=== PATIENT | male | born 1955 | race African-American/Black ===

== ENCOUNTER 2022-11-22 10:08 | Inpatient (IN) | payer SELFPAY ==
[~2022-11-22] VITALS: Ht 188 cm; Wt 82.0 kg
[2022-11-22] MEDS ORDERED: DILTIAZEM HCL 5MG/ML 5ML VIAL IV ONE ×2 (10:45→14:30)
[2022-11-22 11:34] LABS: BASOPHILS % 1.3 % (0.0-2.0); EOSINOPHILS % 4.4 % (0.0-5.0); HEMATOCRIT. 37.5 % (42.0-52.0); HEMOGLOBIN. 12.6 g/dL (14.0-18.0); LYMPHOCYTES % 15.2 % (20.0-50.0); MEAN CORPUSCULAR VOLUME 91.9 fL (80.0-94.0); MEAN PLATELET VOLUME 10.7 fl (7.4-10.4); NEUTROPHILS % 71.1 % (40.0-76.0); PLATELET 179 x1000/uL (130-400); RED BLOOD CELL COUNT 4.08 mill/uL (4.7-6.1); RED CELL DISTRIBUTION WIDTH 15.4 % (11.6-14.6)
[2022-11-22 12:33] LABS: CHLORIDE 108 mEq/L (98-107)
[2022-11-22] MEDS ORDERED: AMIODARONE HCL 900 MG in DEXT 5% WATER 482 ML IV STA (14:47)
[2022-11-22] MEDS ORDERED: ENOXAPARIN 100MG/ML SYR SUBCUT ONE (15:00)
[2022-11-22] MEDS ORDERED: AMIODARONE HCL 900 MG in DEXT 5% WATER 482 ML IV NR (15:30)
[2022-11-22] MEDS ORDERED: HYDROCODONE/ACETAMINOPHEN 5/325MG TABLET PO PRN (16:15)
[2022-11-22] MEDS ORDERED: GUAIFENESIN 200MG/10ML SUGAR FREE UDC PO PRN (16:15)
[2022-11-22] MEDS ORDERED: DOCUSATE SODIUM 100MG CAPSULE PO PRN (16:15)
[2022-11-22] MEDS ORDERED: NA PHOS,M-B/NA PHOS,DI-BA ENEMA 118ML PR PRN (16:15)
[2022-11-22] MEDS ORDERED: IPRATROPIUM/ALBUTEROL 0.5-3(2.5)MG/3ML NEB HHN PRN (16:15)
[2022-11-22] MEDS ORDERED: ONDANSETRON HCL 4MG/2ML INJ IV PRN (16:15)
[2022-11-22] MEDS ORDERED: ACETAMINOPHEN 325MG TABLET PO PRN ×2 (16:15)
[2022-11-22] MEDS ORDERED: ASPIRIN 325MG EC TABLET PO ONE (16:15)
[2022-11-22] MEDS ORDERED: POTASSIUM CHLORIDE 20MEQ TABLET SR PO NR (17:00)
[2022-11-22] MEDS: FUROSEMIDE 20MG TABLET PO SCH (18:26)
[2022-11-22] MEDS: SPIRONOLACTONE 25MG TABLET PO SCH (18:26)
[2022-11-22] MEDS: MAGNESIUM/ALUMINUM HYDROXIDE/SIMETHICONE 30ML UDC PO PRN ×2 (20:02→21:06)
[2022-11-22] MEDS ORDERED: ATORVASTATIN CALCIUM 40MG TABLET PO SCH (21:00)
[2022-11-22] MEDS: GUAIFENESIN 600MG ER TABLET PO SCH (21:06)
[2022-11-22] MEDS: CLONIDINE 0.1MG TABLET PO PRN (23:42)
[2022-11-23 00:11] LABS: *AMPHETAMINES SCREEN URINE NEGATIVE (NEGATIVE); *BARBITURATES SCREEN URINE NEGATIVE (NEGATIVE); *BENZODIAZEPINES SCREEN URINE NEGATIVE (NEGATIVE); *COCAINE SCREEN URINE NEGATIVE (NEGATIVE); CANNABINOID URINE SCREEN PRESUMTIVE POSITIVE (NEGATIVE); METHADONE URINE SCREEN NEGATIVE (NEGATIVE); OPIATES URINE SCREEN NEGATIVE (NEGATIVE); PHENCYCLIDINE URINE SCREEN NEGATIVE (NEGATIVE)
[2022-11-23] MEDS ORDERED: MELATONIN 3MG TABLET PO PRN (01:45)
[2022-11-23] MEDS ORDERED: ENOXAPARIN 80MG/0.8ML SYR SUBCUT SCH (06:00)
[2022-11-23] MEDS: CLONIDINE 0.1MG TABLET PO PRN (06:45)
[2022-11-23] MEDS: PANTOPRAZOLE 40MG DR TABLET PO SCH ×2 (06:45→07:43)
[2022-11-23 09:45] LABS: CHLORIDE 105 mEq/L (98-107)
[2022-11-23 09:48] LABS: HEMATOCRIT 36.1 % (42.0-52.0); MEAN CORPUSCULAR HEMOGLOBIN 30.3 pg (28.0-32.0); MEAN CORPUSCULAR VOLUME 91.5 fL (80.0-94.0); PLATELET 170 x1000/uL (130-400); RED BLOOD CELL COUNT 3.94 mill/uL (4.7-6.1); RED CELL DISTRIBUTION WIDTH 15.5 % (11.6-14.6)
[2022-11-23 09:50] LABS: INR 1.1; PROTHROMBIN TIME 11.9 sec (9.6-11.0)
[2022-11-23] MEDS: FUROSEMIDE 20MG TABLET PO SCH (10:00)
[2022-11-23] MEDS: SPIRONOLACTONE 25MG TABLET PO SCH (10:00)
[2022-11-23] MEDS: GUAIFENESIN 600MG ER TABLET PO SCH (10:00)
[2022-11-23 10:03] LABS: HDL CHOLESTEROL 31 mg/dL (40-59); LDL CHOLESTEROL 90 mg/dL (5-100); PHOSPHORUS 2.6 mg/dL (2.5-4.9); T4 FREE 0.82 ng/dL (0.76-1.46); TOTAL IRON BINDING CAPACITY 267 ug/dL (250-450)
[2022-11-23 11:31] LABS: FOLIC ACID (FOLATE) SERUM 15.2 ng/mL (>5.38)
[2022-11-23 12:00] VITALS: BP 134/88
== END 2022-11-23 15:52 | disposition left against medical advice (07) | DRG 201 ==
LOC: ER 10:13 → MICUSO 14:41 → EDBEDREQ 20:27
PROVIDERS: ADMIT Internal Medicine; ATTEND Internal Medicine
DX: I48.91 Unspecified atrial fibrillation (principal); I24.9 Acute ischemic heart disease, unspecified; I50.9 Heart failure, unspecified; I11.0 Hypertensive heart disease with heart failure; D64.9 Anemia, unspecified; Z96.651 Presence of right artificial knee joint; E87.6 Hypokalemia; Z20.822 Contact with and (suspected) exposure to COVID-19; I47.1 Supraventricular tachycardia; M19.90 Unspecified osteoarthritis, unspecified site; I25.10 Atherosclerotic heart disease of native coronary artery without angina pectoris; E80.6 Other disorders of bilirubin metabolism; Z87.891 Personal history of nicotine dependence; I25.2 Old myocardial infarction; Z79.899 Other long term (current) drug therapy; Z86.73 Personal history of transient ischemic attack (TIA), and cerebral infarction without residual deficits; Z95.810 Presence of automatic (implantable) cardiac defibrillator
CPT/HCPCS: 36415; 71045; 80053; 80061; 80305; 82607; 82728; 82746; 83036; 83540; 83550; 83735; 83880; 84100; 84439; 84443; 84484; 85025; 85027; 85379; 87426; 93005; 93970; 99291; J0282; J1650; J2405; J3490; J7060

== ENCOUNTER 2024-12-03 16:43 | Emergency (ER) | payer OTHER ==
[~2024-12-03] VITALS: Ht 177.8 cm; Wt 80.0 kg
[2024-12-03 16:44] VITALS: O2SAT 98
[2024-12-03] MEDS: INSULIN LISPRO 100 UNITS/ML SUBCUT ONE (18:48)
[2024-12-03] MEDS: LACTATED RINGERS 1,000 ML IV SCH (19:02)
[2024-12-03 20:53] LABS: HEMATOCRIT. 41.9 % (42.0-52.0); HEMOGLOBIN. 13.7 g/dL (14.0-18.0); MEAN CORPUSCULAR HEMOGLOBIN 30.2 pg (28.0-32.0); MEAN CORPUSCULAR HGB CONC 32.7 g/dL (31.0-37.0); MEAN CORPUSCULAR VOLUME 92.5 fL (80.0-94.0); MEAN PLATELET VOLUME 9.3 fl (7.4-10.4); PLATELET 179 x1000/uL (130-400); RED BLOOD CELL COUNT 4.53 mill/uL (4.7-6.1); RED CELL DISTRIBUTION WIDTH 17.4 % (11.6-14.6); WHITE BLOOD COUNT 6.8 x1000/uL (4.5-11.0)
[2024-12-03 20:55] LABS: CARBON DIOXIDE 21 mEq/L (21-32); CHLORIDE 105 mEq/L (98-107); DIFFERENTIAL COMMENT 1; POTASSIUM 3.7 mEq/L (3.5-5.1); SODIUM 140 mEq/L (136-145)
[2024-12-03 21:01] LABS: CREATININE 1.7 mg/dL (0.6-1.3); GLUCOSE 327 mg/dL (70-105); TROPONIN I HIGH SENSITIVITY 11 ng/L (3.0-53); UREA NITROGEN BLOOD 19 mg/dL (9-23)
[2024-12-03 21:03] LABS: ALANINE AMINOTRANSFERASE 35 IU/L (10-49); ALBUMIN 4.4 g/dL (3.2-4.8); ASPARTATE AMINOTRANSFERASE 30 IU/L (<34); BILIRUBIN TOTAL 0.3 mg/dL (0.1-1.0)
[2024-12-03 21:21] LABS: BETA HYDROXYBUTYRATE 0.3 mMol/L (0.0-0.3)
[2024-12-03 22:07] LABS: ANISOCYTOSIS 1+; PLATELET ESTIMATE NORMAL
[2024-12-03 22:36] VITALS: BP 135/87; PULSE 87; RESP 16; TEMP 36.78072; O2SAT 98
== END 2024-12-03 22:37 | disposition home or self-care (01) ==
LOC: ER 16:43 → EDBEDREQ 18:50 → ER 22:37
DX: E11.65 Type 2 diabetes mellitus with hyperglycemia (principal); I25.2 Old myocardial infarction; Z94.1 Heart transplant status
CPT/HCPCS: 99283; 96360; 80053; 82010; 82962; 85025; 84484; 36415; J1815; A4606